=== PATIENT | female | born 1955 | race Caucasian/White ===

== ENCOUNTER 2019-09-19 18:21 | Emergency (ER) | payer SELFPAY ==
[2019-09-19 18:34] VITALS: BP 116/69
--- NOTE | 2019-09-19 18:45 | ED Physician Documentation ---
PD HPI HEAD INJURY - Stated complaint Stated Complaint: LT FACE LAC - Chief complaint Chief Complaint: Trauma Hd/Nk - History obtained from History obtained from: Patient (Her 8-year-old granddaughter was working with her on their golf swing. She got hit in the face with a putter and has a laceration on the left cheek. No headache. No loss of consciousness. Mild pain.) Review of Systems Skin: reports: Reviewed and negative Neurologic: denies: Syncope, Headache, Head injury, LOC PD PAST MEDICAL HISTORY - Allergies Allergies/Adverse Reactions: Allergies Allergy/AdvReac Type Severity Reaction Status Date / Time No Known Drug Allergies Allergy Verified 09/19/19 18:24 PD ED PE NORMAL - Vitals Vital signs reviewed: Yes - General General: Alert and oriented X 3, No acute distress - HEENT HEENT: PERRL, Other (There is a 1 cm shallow laceration slightly stellate in the left infraorbital area laterally. No underlying ocular movements are normal.) - Neuro Neuro: Alert and oriented X 3, Normal speech Results - Vitals Vitals: Vital Signs - 24 hr 09/19/19 18:24 Temperature 36.6 C Heart Rate 82 Respiratory 16 Rate Blood Pressure 116/69 O2 Saturation 99 Oxygen O2 Source Room air Procedures - Laceration (location) Left cheek Length in cm: 1 Wound type: Stellate, Superficial Wound Preparation: Irrigated copiously NS Skin layer closure: Dermabond Other: Tetanus UTD Complexity: Simple Departure - Departure Disposition: 01 Home, Self Care Clinical Impression: Facial laceration Qualifiers: Encounter type: initial encounter Qualified Code(s): S01.81XA - Laceration without foreign body of other part of head, initial encounter Condition: Good Record reviewed to determine appropriate education?: Yes Instructions: ED Laceration Facial Skin Glue Comments: As discussed, leave the glue alone for the most part, try to keep UV light off of it going forward for the next couple of months to minimize scarring. When you are out and about, use high SPF sunscreen and a widebrimmed hat.
== END 2019-09-19 18:51 | disposition home or self-care (01) ==
LOC: ED 18:21
DX: S01.112A Laceration without foreign body of left eyelid and periocular area, initial encounter (principal); W21.89XA Striking against or struck by other sports equipment, initial encounter; Y93.53 Activity, golf; Y92.39 Other specified sports and athletic area as the place of occurrence of the external cause; Y99.8 Other external cause status
CPT/HCPCS: 12011; 99282